=== PATIENT | male | born 1975 | race African-American/Black ===

== ENCOUNTER 2016-05-11 09:46 | Emergency (ER) | payer SELFPAY ==
[~2016-05-11] VITALS: Ht 193 cm; Wt 83.0 kg
[~2016-05-11 09:46] MED LIST: ACET1TAB40 PO; ALBU8.5H3 INH; BENZ100C70 PO; CLON-379 PO; HYD25 PO; HYDR-3498 PO; IBUP800T25 PO; IPRA4AER IH; METO-448 PO; METO50TA16 PO; PRED50TA PO; PROM6.25 PO; QVAR40 INH
[2016-05-11 09:56] VITALS: Ht 193 cm; Wt 83.0 kg
[2016-05-11] MEDS ORDERED: IPRATROPIUM (NEB) 0.5 MG/2.5 ML AMP NEB STA (10:18)
[2016-05-11] MEDS ORDERED: LEVALBUTEROL (NEB) 1.25 MG/0.5 ML AMP INH STA (10:18)
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
[2016-05-11] MEDS ORDERED: METHYLPREDNISOLONE 125 MG INJ IM ONE (10:30)
[2016-05-11] MEDS ORDERED: HYDROCODONE/APAP (5/325) TAB PO ONE (11:00)
--- NOTE | 2016-05-11 11:36 | RADRPT ---
PROCEDURE: XR Chest 1 View. CLINICAL INDICATION: Cough TECHNIQUE: AP view of the chest were obtained. COMPARISON: October 05, 2015 FINDINGS: The cardiomediastinal silhouette is within normal limits. Minimal atelectasis is noted at the lung b ases. Calcified granuloma is identified at the right apex. No consolidations are identified. No pn eumothorax is seen. Osseous structures are intact. IMPRESSION: Scattered atelectasis in the bilateral lower lobes. Calcified granuloma at the right apex. RPTAT: AA .Terrence Mojica MD, Date Time Electronically viewed and signed by .Terrence Mojica MD, on 05/11/2016 11:35 .P/
[2016-05-11] MEDS ORDERED: PRED20TA PO (11:51)
[2016-05-11] MEDS ORDERED: CLIN-73 PO (11:51)
[2016-05-11] MEDS ORDERED: ALBU8.5H3 INH (11:52)
[2016-05-11] MEDS ORDERED: CLON-379 PO (11:52)
[2016-05-11 12:01] VITALS: BP 184/141; PULSE 106; RESP 20; TEMP 98.5
[2016-05-11] MEDS ORDERED: UDROBDM PO (13:00)
== END 2016-05-11 12:35 | disposition home or self-care (01) ==
LOC: FTE 09:46
DX: J45.901 Unspecified asthma with (acute) exacerbation (principal); I10 Essential (primary) hypertension; J06.9 Acute upper respiratory infection, unspecified; H11.31 Conjunctival hemorrhage, right eye; L02.01 Cutaneous abscess of face; Y04.0XXA Assault by unarmed brawl or fight, initial encounter; Z72.0 Tobacco use
CPT/HCPCS: 71010; 94664; 96372; 99284; J2930

== ENCOUNTER 2019-01-06 10:10 | Emergency (ER) | payer OTHER ==
[~2019-01-06] VITALS: Ht 182.9 cm; Wt 80.0 kg
[~2019-01-06 10:10] MED LIST changes: -ALBU8.5H3 INH; +ALBU8.5H8 INH; +BENZ-6 PO; -BENZ100C70 PO; +CEPH-443 PO; +CLIN300C10 PO; +GUAI5SYR2 PO; -HYD25 PO; +HYDR25TA6 PO; -IBUP800T25 PO; +IBUP800T48 PO; +METO-319 PO; -METO50TA16 PO; +PRED20TA PO; +SULF1TAB31 PO
[2019-01-06 10:19] VITALS: BP 145/98; PULSE 90; RESP 18; Ht 182.9 cm; Wt 80.0 kg
[2019-01-06] MEDS ORDERED: LIDOCAINE 4% CR TOP ONE (12:00)
[2019-01-06] MEDS ORDERED: LIDOCAINE 1% (MDV) 20 ML INJ SC ONE (12:00)
== END 2019-01-06 13:36 | disposition home or self-care (01) ==
LOC: FTE 10:10
DX: L02.413 Cutaneous abscess of right upper limb (principal); I10 Essential (primary) hypertension; J45.909 Unspecified asthma, uncomplicated; F17.210 Nicotine dependence, cigarettes, uncomplicated
CPT/HCPCS: 10060; Z7502; Z7610